=== PATIENT | female | born 1945 | race Caucasian/White ===

== ENCOUNTER → 2016-08-29 | Outpatient (CLI) | payer OTHER ==
[~2016-08-29] VITALS: Ht 152.4 cm; Wt 63.5 kg
[~2016-08-29] MED LIST: ALDACTONE50 MG PO; AMBIEN5 M1 PO; AMBIEN5 MG PO; ASPIRIN81 M1 PO; ASPIRIN81 M2 PO; Ambien PO; BONIVA150 MG PO; CEFUROXIME500 MG PO; CETIRIZINE HCL10 M2 PO; CRESTOR5 MG PO; CYCLOBENZAPRINE5 MG PO; DESYREL 150 MG150 MG PO; ENDOCET 5-3251 EACH PO; FLEXERIL5 MG PO; FLORASTOR250 MG PO; FUROSEMIDE40 MG PO; FUROSEMIDE80 MG PO; IMODIUM MS REL1 EACH PO; K-Lor,Klor-Con PO; KLOR-CON M2020 MEQ PO; KLOR-CON20 MEQ PO; LASIX40 MG PO; LO-DOSE ASPIRIN81 M2 PO; LOPRESSOR100 M1 PO; Lasix PO; MAG-OXIDE400 MG PO; MECLIZINE HCL25 MG PO; MELATONIN5 M1 PO; METOPROLOL TAR100 MG PO; MOTRIN800 MG PO; MYRBETRIQ50 MG PO; Maxipime IV; NEXIUM40 MG PO; NORVASC2.5 MG PO; NORVASC5 MG PO; PLAVIX75 MG PO; PRISTIQ100 MG PO; PRISTIQ50 MG PO; PROBIOTIC1 EAC1 PO; PROTONIX40 MG PO; SINGULAIR10 MG PO; TOPROL XL100 MG PO; TRAMADOL HCL50 MG PO; ULTRAM50 MG PO; VITAMIN B12 PO; VITAMIN D1000 UNIT PO; VITAMIN D31000 UNI2 PO; VITAMIN D31000 UNIT PO; VITAMIN D35000 UNIT PO; Vancomycin IV; ZOLPIDEM; ZOLPIDEM TARTRA10 MG PO; ZYRTEC10 M2 PO; ZYRTEC10 M3 PO
== END | disposition home or self-care (01) ==
LOC: AMB 06-20 10:00
DX: R13.10 Dysphagia, unspecified (principal); K20.9 Esophagitis, unspecified; K44.9 Diaphragmatic hernia without obstruction or gangrene; K21.9 Gastro-esophageal reflux disease without esophagitis; K22.8 Other specified diseases of esophagus; I10 Essential (primary) hypertension; M19.90 Unspecified osteoarthritis, unspecified site; I73.9 Peripheral vascular disease, unspecified; Z86.73 Personal history of transient ischemic attack (TIA), and cerebral infarction without residual deficits; Z79.82 Long term (current) use of aspirin
CPT/HCPCS: 88305; B4087; J2250; J3010

== ENCOUNTER 2017-03-01 22:26 | Observation (INO) | payer OTHER ==
[~2017-03-01] VITALS: Ht 152.4 cm; Wt 64.2 kg
[2017-03-02] MEDS ORDERED: ZANAFLEX2 M1 PO (00:49)
[2017-03-02 01:25] LABS: ADD MIUA? YES; BILIRUBIN NEGATIVE; BLOOD NEGATIVE; COLOR AMBER ((YELLOW)); GLUCOSE (STRIP) NEGATIVE; KETONES NEGATIVE; LEUKOCYTES MODERATE; NITRITE NEGATIVE; PROTEIN (STRIP) 100; UROBILINOGEN 0.2 MG/DL (0.2-1.0)
[2017-03-02 01:56] LABS: BACTERIA 3+ /HPF; CRYSTALS PRESENT
[2017-03-02 02:02] LABS: UCUL ADDED? YES
[2017-03-02 02:04] LABS: AMORPHOUS PHOSPHATE CRYSTALS 3+
[2017-03-02] MEDS ORDERED: PLAVIX75 MG PO (05:00)
[2017-03-02] MEDS ORDERED: KHEDEZLA100 MG PO (05:02)
[2017-03-02] MEDS ORDERED: LEVOTHYROXINE50 MCG PO (05:04)
[2017-03-02] MEDS ORDERED: ESOMEPRAZOLE MA40 MG PO (05:05)
[2017-03-02 06:06] LABS: EOSINOPHIL (%) 0.7 % (0-5); EOSINOPHIL COUNT 0.1 K/uL (0-0.3); HEMATOCRIT 31.2 % (36.0-46.0); IMMATURE GRANULOCYTE (%) 0.3 % (0.0-0.7); INSTRUMENT ABS NEUTROPHIL CT 7.2 K/uL; LYMPHOCYTE COUNT 1.1 K/uL (1.0-2.8); MCH 26.2 PG (29.0-34.0); MCHC 30.8 G/DL (30.0-36.0); MCV 85.2 FL (83-99); MEAN PLAT.VOLUME 11.1 uM^3 (9.5-12.4); MONOCYTE COUNT 0.4 K/uL (0-0.8); NEUTROPHIL (%) 82.1 % (45-76); NEUTROPHIL COUNT 7.2 K/uL (1.8-6.4); PLATELET COUNT 269 K/uL (156-360); RBC DIS.WIDTH-CV 14.5 % (11.8-14.6); RBC DIS.WIDTH-SD 44.5 % (39-53); RED BLOOD COUNT 3.66 M/uL (3.80-5.20); WHITE BLOOD COUNT 8.8 K/uL (4.1-10.2)
[2017-03-02 06:17] LABS: CHLORIDE 102 mEq/L (99-109); POTASSIUM 4.4 mEq/L (3.7-5.4); SODIUM 138 mEq/L (136-147)
[2017-03-02 06:19] LABS: GLUCOSE 88 mg/dL (70-99)
[2017-03-02 06:20] LABS: ANION GAP 17 MEQ/L (2-14)
[2017-03-02 06:21] LABS: TOTAL BILIRUBIN 0.4 mg/dL (0.0-1.0)
[2017-03-02 06:22] LABS: ALKALINE PHOSPHATASE 104 IU/L (3-129)
[2017-03-02 06:23] LABS: GFR ESTIMATE (CALCULATED) 22 mL/min/
[2017-03-02 06:24] LABS: UREA NITROGEN (BUN) 51 mg/dL (9-23)
[2017-03-02 06:26] LABS: INTER. NORMALIZED RATIO 1.2; PROTHROMBIN TIME 13.7 SEC (10.2-12.9)
[2017-03-02 06:29] LABS: PTT 30.8 SEC (25-37)
[2017-03-02 07:31] VITALS: BP 119/56
[2017-03-02 11:24] VITALS: BP 94/56
[2017-03-02 19:00] VITALS: BP 125/58
[2017-03-02 23:49] VITALS: BP 99/54
[2017-03-03 03:55] VITALS: BP 94/56
[2017-03-03 07:15] VITALS: BP 118/58
[2017-03-03] MEDS ORDERED: TRAMADOL HCL50 MG PO (08:57)
== END 2017-03-03 11:33 | disposition home or self-care (01) ==
LOC: EME 22:26 → EDOF 03-02 04:30 → 5WEST 03-02 07:12
PROVIDERS: Physician Assistant; Physician Assistant Medical
DX: M62.830 Muscle spasm of back (principal); Q05.9 Spina bifida, unspecified; I69.351 Hemiplegia and hemiparesis following cerebral infarction affecting right dominant side; Z99.3 Dependence on wheelchair; K21.9 Gastro-esophageal reflux disease without esophagitis; I12.9 Hypertensive chronic kidney disease with stage 1 through stage 4 chronic kidney disease, or unspecified chronic kidney disease; N18.3 Chronic kidney disease, stage 3 (moderate); E78.5 Hyperlipidemia, unspecified; I25.10 Atherosclerotic heart disease of native coronary artery without angina pectoris; I25.2 Old myocardial infarction; E03.9 Hypothyroidism, unspecified; G43.909 Migraine, unspecified, not intractable, without status migrainosus; F32.9 Major depressive disorder, single episode, unspecified; M79.7 Fibromyalgia; M79.89 Other specified soft tissue disorders
CPT/HCPCS: 80048; 80053; 81003; 83605; 85025; 85027; 85610; 85730; 87040; 87086; 93971; 99281; 99283; G0378; J1644

== ENCOUNTER 2017-03-06 12:44 | Emergency (ER) | payer OTHER ==
[~2017-03-06] VITALS: Ht 152.4 cm; Wt 64.5 kg
[~2017-03-06 12:44] MED LIST changes: +ESOMEPRAZOLE MA40 MG PO; +KHEDEZLA100 MG PO; +LEVOTHYROXINE50 MCG PO; +ZANAFLEX2 M1 PO
[2017-03-06 14:00] LABS: HEMATOCRIT 30.7 % (36.0-46.0); MCH 26.2 PG (29.0-34.0); MCHC 30.9 G/DL (30.0-36.0); MCV 84.8 FL (83-99); MEAN PLAT.VOLUME 11.3 uM^3 (9.5-12.4); PLATELET COUNT 281 K/uL (156-360); RBC DIS.WIDTH-CV 14.6 % (11.8-14.6); RBC DIS.WIDTH-SD 44.8 % (39-53); RED BLOOD COUNT 3.62 M/uL (3.80-5.20); WHITE BLOOD COUNT 11.9 K/uL (4.1-10.2)
[2017-03-06 14:06] LABS: CHLORIDE 100 mEq/L (99-109); POTASSIUM 4.7 mEq/L (3.7-5.4); SODIUM 135 mEq/L (136-147)
[2017-03-06 14:08] LABS: GLUCOSE 91 mg/dL (70-99)
[2017-03-06 14:09] LABS: ANION GAP 15 MEQ/L (2-14)
[2017-03-06 14:12] LABS: GFR ESTIMATE (CALCULATED) 22 mL/min/; UREA NITROGEN (BUN) 56 mg/dL (9-23)
[2017-03-06] MEDS ORDERED: ATIVAN1 MG PO (14:46)
[2017-03-06] MEDS ORDERED: PERCOCET 5/31 TABLET PO (14:46)
[2017-03-06 15:09] VITALS: BP 109/70
== END 2017-03-06 15:09 | disposition home or self-care (01) ==
LOC: EME 12:44
PROVIDERS: Emergency Medicine
DX: M54.5 Low back pain (principal); Q05.9 Spina bifida, unspecified; G83.14 Monoplegia of lower limb affecting left nondominant side; E78.5 Hyperlipidemia, unspecified; I12.9 Hypertensive chronic kidney disease with stage 1 through stage 4 chronic kidney disease, or unspecified chronic kidney disease; N18.9 Chronic kidney disease, unspecified; Z86.73 Personal history of transient ischemic attack (TIA), and cerebral infarction without residual deficits; K21.9 Gastro-esophageal reflux disease without esophagitis; F32.9 Major depressive disorder, single episode, unspecified; F41.9 Anxiety disorder, unspecified; J45.909 Unspecified asthma, uncomplicated; Z91.040 Latex allergy status; Z88.6 Allergy status to analgesic agent; Z88.2 Allergy status to sulfonamides
CPT/HCPCS: 72100; 80048; 85027; 99281; 99285